=== PATIENT | female | born 1955 | race Caucasian/White ===

== ENCOUNTER → 2020-07-25 12:16 | Outpatient (CLI) | payer BC ==
[2020-07-25 13:03] LABS: BASOPHILS 0.3 % (0-2); EOSINOPHILS 2.5 % (0-7); HEMATOCRIT 44.2 % (36.0-48.0); HEMOGLOBIN 13.7 g/dL (12-16); LYMPHOCYTE ABS# 1.58 10x3/uL (1.18-3.74); MCH 24.9 pg (26.0-34.0); MCV 80.2 fL (80.0-100.0); MONOCYTES 6.3 % (2-11); NEUTROPHIL ABS# 4.15 10x3/uL (1.56-6.13); NEUTROPHILS 65.9 % (40-80); PLATELET COUNT 263 10x3/uL (130-400); RBC 5.51 10x6/uL (4.00-5.40); RDW 24.6 % (11.5-14.5); WBC 6.3 10x3/uL (4.8-10.8)
== END | disposition home or self-care (01) ==
LOC: D.LAB 12:16
PROVIDERS: ATTEND Internal Medicine Gastroenterology
DX: D64.9 Anemia, unspecified (principal)